=== PATIENT | female | born 1985 | race Asian ===

== ENCOUNTER 2017-08-17 16:16 | Outpatient (CLI) | END 2017-08-17 17:55 | disposition home or self-care (01) ==

== ENCOUNTER 2017-08-26 10:59 | Inpatient (IN) | END 2017-08-28 13:53 | disposition home or self-care (01) | DRG 775 ==

== ENCOUNTER 2018-12-27 00:34 | Outpatient (CLI) | payer OTHER ==
[~2018-12-27] VITALS: Ht 167.6 cm; Wt 77.3 kg
[~2018-12-27 00:34] MED LIST: PREN1TAB79 PO
[2018-12-27 00:47] VITALS: BP 110/65; PULSE 82; RESP 18
[2018-12-27 00:48] VITALS: Ht 167.6 cm; Wt 77.3 kg
[2018-12-27] MEDS ORDERED: GUAIFENESIN/DM 5ML CUP PO ONE (01:00)
--- NOTE | 2018-12-27 03:32 | PN ---
Triage Information Date/Time Reason for visit: cough Weeks of Gestation 26 weeks /Para Diabetes: none Hypertention: none Objective Vital Signs Date Temp Pulse Resp B/P (MAP) Pulse Ox O2 O2 Flow FiO2 Time Delivery Rate 12/27/18 99.1 82 18 110/65 97 Room Air 00:47 (80) Heart Rate: 140's Heart Rate Comments Appropriate for GA Results/Medications Result Diagram: 12/27/18 0152 Results 24 hrs Laboratory Tests Test 12/27/18 01:01 12/27/18 01:52 Urine Color YELLOW Urine Clarity SLIGHTLY CLOUDY A Urine pH 6.0 Urine Specific [place] 1.019 Urine Ketones NEGATIVE Urine Nitrite NEGATIVE Urine Bilirubin NEGATIVE Urine Urobilinogen NEGATIVE Urine Leukocyte Esterase TRACE A Urine Microscopic RBC 1 Urine Microscopic WBC 3 Urine Squamous Epithelial Cells FEW Urine Hemoglobin NEGATIVE Urine Glucose NEGATIVE Urine Total Protein NEGATIVE White Blood Count 8.1 # Red Blood Count 3.30 L Hemoglobin 10.7 L Hematocrit 31.5 L Mean Corpuscular Volume 95.5 Mean Corpuscular Hemoglobin 32.4 Mean Corpuscular Hemoglobin Concent 34.0 Red Cell Distribution Width 12.9 Platelet Count 189 Mean Platelet Volume 9.7 Immature Granulocytes % 0.600 H Neutrophils % 63.7 Lymphocytes % 26.3 Monocytes % 6.1 Eosinophils % 3.1 Basophils % 0.2 Nucleated Red Blood Cells % 0.0 Immature Granulocytes # 0.050 H Neutrophils # 5.1 Lymphocytes # 2.1 Monocytes # 0.5 Eosinophils # 0.3 Basophils # 0.0 Nucleated Red Blood Cells # 0.0 Imaging Results [facility] 03/17 Disposition: Discharge Assessment/Plan Azithromycin Z Mendoza Follow up with BAYRON Bragg MD December 27, 2018 03:32
--- NOTE | 2018-12-27 09:14 | TRIAGE ---
OB Triage Datetime Report Generated by CPN: 12/27/2018 09:13 Datetime: 12/27/2018 03:26 Stage of : OB Triage Temperature Route: Oral Labor Evaluation Frequency: None noted or palpated Monitor Mode: External Resting Tone [place]: Relaxed Heart Rate FHR Baseline Rate: 135 Monitor Mode: External US FHR Baseline Changes: No Baseline Change Variability: Moderate 6-25 bpm Accelerations: 15X15 Decelerations: None Datetime: 12/27/2018 02:59 Stage of : OB Triage Labor Evaluation Frequency: NONE Monitor Mode: External Heart Rate FHR Baseline Rate: 135 Monitor Mode: External US Variability: Moderate 6-25 bpm Accelerations: 15X15 Decelerations: None Category: Category I Datetime: 12/27/2018 02:43 Contraction Comments: Patient coughed Datetime: 12/27/2018 02:01 Stage of : OB Triage Labor Evaluation Frequency: NONE Monitor Mode: External Heart Rate FHR Baseline Rate: 135 Monitor Mode: External US Variability: Moderate 6-25 bpm Accelerations: 15X15 Decelerations: None Category: Category I Datetime: 12/27/2018 01:17 Stage of : OB Triage Datetime: 12/27/2018 00:59 Stage of : OB Triage Labor Evaluation Frequency: None Monitor Mode: External Pattern: Normal: <= 5 Contractions in 10 Minutes Resting Tone [place]: Relaxed Heart Rate FHR Baseline Rate: 140 Monitor Mode: External US Variability: Moderate 6-25 bpm Accelerations: 15X15 Decelerations: None Category: Category I Datetime: 12/27/2018 00:52 Stage of : OB Triage Assessment Type: Triage Maternal Assessment Level of Consciousness: Fully Conscious DTR's/Clonus: DTRs 2+; No Clonus Headache: Denies Blurred Vision: No Respiratory Effort: Unlabored; Regular Rhythm; Equal Expansion Breath Sounds, Left: Clear and Equal Breath Sounds, Right: Clear and Equal Nausea/Vomiting: Denies RUQ Epigastric Pain: Denies Lower Extremities Edema: None Degree: None Upper Extremities Edema: None Degree: None Facial Edema: None Temperature Route: Oral Fall Risk Assessment History of Falling: (0) No Secondary Diagnosis: (0) No Ambulatory Aid: (0) Bedrest/Nurse Assist IV Therapy: (0) No Gait: (0) Normal/Bedrest/Immobile Mental Status: (0) Oriented to Own Ability Fall Score: 0 Fall Risk Score Definition: No Risk: No action required Monitor Mode: External Monitor Mode: External US Pain Assessment Pain Scale: 6 Pain Presence: Intermittent Pain Type: Ache Pain Location: Abdomen; Back; Right Flank Pain Relief Measures: Comfort Measures Datetime: 12/27/2018 00:50 Time of Arrival: 12/27/2018 00:23 EGA: 26.6 Arrived By: Wheelchair Arrived From: Emergency Dept Chief Complaint: Decreased movt. Cough x7days - getting worse Movement: Decreased Contractions: Denies/Absent Rupture of Membranes: Denies Vaginal Discharge: Denies Recent Sexual Intercouse: Denies Abdominal Trauma: Not Applicable Patient Complaints: Fever; Cough Additional Patient Complaints: Ear/throat ache Fever yesterday Time Provider Notified: 12/27/2018 00:37 Provider Notified: Initial Plan: EFM, VS
== END 2018-12-27 03:40 | disposition home or self-care (01) ==
LOC: L-D 00:34 → OBT 00:34
PROVIDERS: ATTEND Obstetrics & Gynecology
DX: O99.512 Diseases of the respiratory system complicating pregnancy, second trimester (principal); R05 Cough; O09.522 Supervision of elderly multigravida, second trimester; Z3A.26 26 weeks gestation of pregnancy
CPT/HCPCS: 76815; 76818; 81001; 85025; Z7500; Z7610; G0463

== ENCOUNTER 2019-03-20 01:29 | Inpatient (IN) | payer OTHER ==
[~2019-03-20] VITALS: Ht 167.6 cm; Wt 76.9 kg
[2019-03-20 01:44] VITALS: Ht 167.6 cm; Wt 76.9 kg
[2019-03-20 01:45] VITALS: BP 119/76; PULSE 81; RESP 17
[2019-03-20] MEDS ORDERED: ACETAMINOPHEN 325 MG TAB PO ONE (04:00)
--- NOTE | 2019-03-20 04:08 | HP ---
Date/Time of Note Date/Time of Note DATE: 03/20/19 TIME: 04:06 OB - History Hx of Present Chief Complaint: contractionts, bloody discharge Estimated Due Date: Mar 29, 2019 : 6 Para: 4 Care: Good Care Obstetrical Complications: None Medical Complications: None Past Family/Social History * Past Medical, Surgical, Family and Obstetric Histories reviewed from chart. OB Admission Exam Vital Signs Vital Signs Vital Signs Date Temp Pulse Resp B/P (MAP) Pulse Ox O2 O2 Flow FiO2 Time Delivery Rate 03/20/19 98.2 81 17 119/76 Room Air 01:45 (90) Physical Exam HEENT: WNL Heart: Rhythm Normal Abdomen: WNL Extremities: Normal Cervical Dilatation: 3cm Effacement: 75% Station: -2 Membranes: Intact Contractions on Admission: 6-10 Minutes Apart Intensity: Moderate OB Assessment/Plan Reason for admission: other (early labor, IUP 38 weeks, EFW 3200 gr) Other plan: Admit to L@D, patient requesting epidural, expected management JOSÉ MIGUEL FALL MD Mar 20, 2019 04:08
[2019-03-20] MEDS ORDERED: OXYTOCIN 30 UNITS/LR 500 ML IV PRN ×2 (04:30→11:30)
[2019-03-20] MEDS ORDERED: CARBOPROST 250 MCG INJ IM PRN ×2 (04:30→11:30)
[2019-03-20] MEDS ORDERED: LIDOCAINE 1% (MPF) 30 ML INJ INJ PRN (04:30)
[2019-03-20] MEDS ORDERED: OXYTOCIN 30 UNITS/LR 500 ML IV SCH ×3 (04:30→11:07)
[2019-03-20] MEDS ORDERED: METHYLERGONOVINE 0.2 MG INJ IM PRN ×2 (04:30→11:30)
[2019-03-20] MEDS ORDERED: MISOPROSTOL 200 MCG TAB PR PRN ×2 (04:30→11:30)
[2019-03-20] MEDS ORDERED: IBUPROFEN 600 MG TAB PO PRN (04:30)
[2019-03-20] MEDS ORDERED: BUTORPHANOL 2 MG INJ IV PRN ×2 (04:30)
[2019-03-20] MEDS: LACTATED RINGER'S 1,000 ML IV SCH ×2 (04:40→05:45)
--- NOTE | 2019-03-20 04:56 | PREAC ---
Date/Time of Note Date/Time of Note DATE: 03/20/19 TIME: 04:55 Anesthesia Eval and Record Evaluation Time Pre-Procedure Interview DATE: 03/20/19 TIME: 04:55 Age 34 Sex female NPO: 8 hrs Preoperative diagnosis labor pain Planned procedure epidural Past Medical History Past Medical History: Includes Surgery & Anesthesia Issues No known issue Meds Anticoagulation: No Beta Torrey within 24 hr: No Reason Beta Torrey not given: Pt. not on B-Torrey Reported Medications Vit W-Ca,Fe,FA(<1 mg) ( Vitamins) 1 Each Tablet, 1 EACH PO, TAB 01/07/16 Current Medications Lactated Ringer's 1,000 ml @ 125 mls/hr Q8H IV Last administered on 03/20/19at 04:40; Admin Dose 125 MLS/HR; Start 03/20/19 at 04:01 Butorphanol Tartrate (Stadol) 1 mg Q2H PRN IV .PAIN SCALE 1-5; Start 03/20/19 at 04:30 Butorphanol Tartrate (Stadol) 2 mg Q2H PRN IV .PAIN SCALE 6-10; Start 03/20/19 at 04:30 Lidocaine (Xylocaine 1% (Mpf)) 30 ml ONCE PRN INJ .EPISIOTOMY; Start 03/20/19 at 04:30 Oxytocin/Lactated Ringer's 500 ml @ 500 mls/hr ONCE POST IV ; Start 03/20/19 at 04:30 Oxytocin/Lactated Ringer's 500 ml @ 125 mls/hr POST IV ; Start 03/20/19 at 04:30 Ibuprofen (Motrin) 600 mg ONCE PRN PO .PAIN 1-5; Start 03/20/19 at 04:30 Oxytocin/Lactated Ringer's 500 ml @ 0 mls/hr ONCE PRN IV .VAGINAL BLEEDING; Start 03/20/19 at 04:30 Methylergonovine Maleate (Methergine) 0.2 mg ONCE PRN IM .VAGINAL BLEEDING; Start 03/20/19 at 04:30 Carboprost Tromethamine (Hemabate) 250 mcg ONCE PRN IM .VAGINAL BLEEDING; Start 03/20/19 at 04:30 Misoprostol (Cytotec) 1,000 mcg ONCE PRN RI .VAGINAL BLEEDING; Start 03/20/19 at 04:30 Meds reviewed: Yes Allergies Coded Allergies: No Known Allergy (Unverified , 03/20/19) Allergies Reviewed: Yes Labs/Studies Labs Reviewed: Reviewed by anesthesiologist test: Positive Studies: ECG (n/a), CXR (n/a) Pre-procedure Exam Last vitals Vital Signs Date Temp Pulse Resp B/P (MAP) Pulse Ox O2 O2 Flow FiO2 Time Delivery Rate 03/20/19 98.2 81 17 119/76 Room Air 01:45 (90) Airway: Adequate mouth opening Mallampati: Mallampati I Teeth: Normal Lung: Normal Heart: Normal ASA Physical Status ASA physical status: 2 Emergency: None Planned Anesthetic Neuraxial: Epidural Pre-operative Attestations Prior to commencing anesthesia and surgery, the patient was re-evaluated, there was verification of: *The patient's identity *The results of appropriate recent lab work and preoperative vital signs *The above evaluation not changing prior to induction *Anesthetic plan, risk benefits, alternative and complications discussed with patient/family; questions answered; patient/family understands, accepts and wis hes to proceed. DAVID REDDY MD Mar 20, 2019 04:56
[2019-03-20] MEDS ORDERED: FENTAnyl 2MCG/ML-ROPIV 0.2% 100 ML ONE (05:10)
--- NOTE | 2019-03-20 05:21 | PAC ---
Date/Time of Note Date/Time of Note DATE: 03/20/19 TIME: 05:20 Post-Anesthesia Notes Post-Anesthesia Note Last documented vital signs Vital Signs Date Temp Pulse Resp B/P (MAP) Pulse Ox O2 O2 Flow FiO2 Time Delivery Rate 03/20/19 98.2 87 17 101/58 100 Room Air 01:45 Activity: WNL Respiratory function: WNL Cardiovascular function: WNL Mental status: Baseline Pain reasonably controlled: Yes Hydration appropriate: Yes Nausea/Vomiting absent: No DAVID REDDY MD Mar 20, 2019 05:21
[2019-03-20] MEDS ORDERED: NALOXONE (0.4 MG/ML) INJ IV PRN (05:30)
[2019-03-20] MEDS ORDERED: ONDANSETRON 4 MG INJ IV PRN (05:30)
[2019-03-20] MEDS ORDERED: DIPHENHYDRAMINE 50 MG INJ IV PRN (05:30)
[2019-03-20] MEDS ORDERED: FENTAnyl 2MCG/ML-ROPIV 0.2% 100 ML BAG EPI SCH (05:30)
--- NOTE | 2019-03-20 06:27 | TRIAGE ---
OB Triage Datetime Report Generated by CPN: 03/20/2019 06:27 Datetime: 03/20/2019 06:13 Labor Evaluation Frequency: 2-3 Monitor Mode: External Duration (sec)2399: 40-90 Quality: Moderate Pattern: Normal: <= 5 Contractions in 10 Minutes Resting Tone [place]: Relaxed Heart Rate FHR Baseline Rate: 120 Monitor Mode: External US FHR Baseline Changes: No Baseline Change Variability: Moderate 6-25 bpm Accelerations: 15X15 Decelerations: None Category: Category I Pain Presence: None/Denies Datetime: 03/20/2019 05:45 Maternal Assessment Level of Consciousness: Keenly Alert, Responsive Labor Evaluation Frequency: 2-3 Monitor Mode: External Duration (sec)2399: 40-100 Quality: Moderate Pattern: Normal: <= 5 Contractions in 10 Minutes Resting Tone [place]: Relaxed Heart Rate FHR Baseline Rate: 120 Monitor Mode: External US FHR Baseline Changes: No Baseline Change Variability: Moderate 6-25 bpm Accelerations: 15X15 Decelerations: None Category: Category I Pain Presence: None/Denies Datetime: 03/20/2019 05:34 Vaginal Exam Dilatation (cms): 4.0 Effacement (%): 60 Station: -2 Exam By: mv Datetime: 03/20/2019 05:20 Pain Assessment Pain Scale: 0 Datetime: 03/20/2019 05:13 Maternal Assessment Level of Consciousness: Keenly Alert, Responsive Datetime: 03/20/2019 05:06 Maternal Assessment Level of Consciousness: Keenly Alert, Responsive Datetime: 03/20/2019 05:05 Maternal Assessment Level of Consciousness: Keenly Alert, Responsive Datetime: 03/20/2019 04:59 Maternal Assessment Level of Consciousness: Keenly Alert, Responsive Datetime: 03/20/2019 04:57 Maternal Assessment Level of Consciousness: Keenly Alert, Responsive Pain Assessment Pain Scale: 8 Datetime: 03/20/2019 04:44 Contraction Comments: unable to detect, pt moving. Heart Rate FHR Baseline Rate: 135 Monitor Mode: External US Variability: Moderate 6-25 bpm Accelerations: 15X15 Decelerations: None Category: Category I Datetime: 03/20/2019 04:15 Stage of : Labor Assessment Type: Admission Assessment Vaginal Bleeding: None Maternal Assessment Level of Consciousness: Keenly Alert, Responsive DTR's/Clonus: DTRs 2+; No Clonus Headache: Denies Blurred Vision: No Respiratory Effort: Unlabored; Regular Rhythm; Equal Expansion Breath Sounds, Left: Clear and Equal Breath Sounds, Right: Clear and Equal Nausea/Vomiting: Denies RUQ Epigastric Pain: Denies Lower Extremities Edema: None Degree: None Upper Extremities Edema: None Degree: None Facial Edema: None Fall Risk Assessment History of Falling: (0) No Secondary Diagnosis: (0) No Ambulatory Aid: (0) Bedrest/Nurse Assist IV Therapy: (20) Yes Gait: (0) Normal/Bedrest/Immobile Mental Status: (0) Oriented to Own Ability Fall Score: 20 Fall Risk Score Definition: No Risk: No action required Pain Assessment Pain Scale: 8 Pain Presence: Intermittent Pain Type: Burning; Cramping; Pressure; Ache Pain Location: Abdomen; Back Datetime: 03/20/2019 04:00 Stage of : OB Triage Labor Evaluation Frequency: OCCA Monitor Mode: External Duration (sec)2399: 120 Quality: Mild Pattern: Normal: <= 5 Contractions in 10 Minutes Resting Tone [place]: Relaxed Heart Rate FHR Baseline Rate: 125 Monitor Mode: External US Variability: Moderate 6-25 bpm Accelerations: 15X15 Decelerations: None Category: Category I Vaginal Exam Dilatation (cms): 3.0 Effacement (%): 50 Station: -3 Exam By: DR. FALL Membrane Status: Bulging Vaginal Bleeding: Normal Show Cervix, Position: Posterior Presentation 'A': Cephalic Datetime: 03/20/2019 03:30 Vaginal Exam Dilatation (cms): 3.0 Effacement (%): 50 Station: -3 Exam By: Renetta PEREZDAVID Vaginal Bleeding: Normal Show Cervix, Position: Posterior Datetime: 03/20/2019 03:06 Monitor Mode: External Contraction Comments: APPLIED Monitor Mode: External US Comments: APPLIED Datetime: 03/20/2019 02:11 Labor Evaluation Frequency: X1 Monitor Mode: External Duration (sec)2399: 80 Pattern: Normal: <= 5 Contractions in 10 Minutes Resting Tone [place]: Relaxed Heart Rate FHR Baseline Rate: 135 Monitor Mode: External US Variability: Moderate 6-25 bpm Accelerations: 15X15 Decelerations: None Category: Category I Datetime: 03/20/2019 02:00 Vaginal Exam Dilatation (cms): 3.0 Effacement (%): 50 Station: -3 Exam By: Renetta HERNANDEZ Membrane Status: Intact Vaginal Bleeding: Scant Cervix, Consistency: Firm Cervix, Position: Posterior Datetime: 03/20/2019 01:47 Time of Arrival: 03/20/2019 01:24 EGA: 38.5 Arrived By: Wheelchair Arrived From: Home Chief Complaint: CONTRACTIONS SINCE 1999 BLEEDING Movement: Present Contractions: Irregular Time Contractions Began: 03/19/2019 20:00 Rupture of Membranes: Denies Vaginal Discharge: Present Recent Sexual Intercouse: Denies Abdominal Trauma: Not Applicable Patient Complaints: Contractions Time Provider Notified: 03/20/2019 02:05 Provider Notified: DR. REYES Initial Plan: EFM, SVE, CALL OB Datetime: 03/20/2019 01:37 Stage of : OB Triage Maternal Assessment Level of Consciousness: Keenly Alert, Responsive DTR's/Clonus: DTRs 2+; No Clonus Headache: Denies Blurred Vision: No Respiratory Effort: Unlabored; Regular Rhythm; Equal Expansion Breath Sounds, Left: Clear and Equal Breath Sounds, Right: Clear and Equal Nausea/Vomiting: Denies RUQ Epigastric Pain: Denies Lower Extremities Edema: None Degree: None Upper Extremities Edema: None Degree: None Facial Edema: None Temperature Route: Oral Fall Risk Assessment History of Falling: (0) No Secondary Diagnosis: (0) No Ambulatory Aid: (0) Bedrest/Nurse Assist IV Therapy: (0) No Gait: (0) Normal/Bedrest/Immobile Mental Status: (0) Oriented to Own Ability Fall Score: 0 Fall Risk Score Definition: No Risk: No action required Pain Assessment Pain Scale: 6 Pain Presence: Intermittent Pain Type: Contraction Pain Location: Abdomen Datetime: 03/20/2019 01:35 Monitor Mode: External Contraction Comments: APPLIED Monitor Mode: External US Comments: APPLIED Datetime: 12/27/2018 01:00 Stage of : OB Triage Datetime: 12/27/2018 00:52 Fall Score: 0 Fall Risk Score Definition: No Risk: No action required Datetime: 12/27/2018 00:50 EGA: 26.6 Datetime: 12/27/2018 00:42 Stage of : OB Triage Datetime: 12/27/2018 00:37 Stage of : OB Triage
--- NOTE | 2019-03-20 08:45 | LDN ---
Date/Time of Note Date/Time of Note DATE: 03/20/19 TIME: 08:44 Delivery Summary Placenta Delivered: Spontaneously Meconium: none Episiotomy: No Estimated blood loss: 300 Sponge & Needle done & correct: Yes All needle counts correct: Yes Any foreign bodies felt in the: No APOLONIA ERYES MD Mar 20, 2019 08:44
--- NOTE | 2019-03-20 08:45 | DS ---
Date/Time of Note Date/Time of Note DATE: 03/20/19 TIME: 08:45 Discharge Summary Admission/Discharge Info Admit Date/Time Mar 20, 2019 at 04:00 Discharge Date/Time Patient Condition: Good Hospital Course unremarkable Home Meds Reported Medications Vit W-Ca,Fe,FA(<1 mg) ( Vitamins) 1 Each Tablet, 1 EACH PO, TAB 01/07/16 Primary Care Provider Not On Staff Doctor Pending Labs Laboratory Tests Test 03/20/19 04:40 White Blood Count 10.1 10^3/ul (4.8-10.8) Red Blood Count 3.76 10^6/ul (4.20-5.40) Hemoglobin 12.0 g/dl (12.0-16.0) Hematocrit 36.2 % (37.0-47.0) Mean Corpuscular Volume 96.3 fl (82.0-101.0) Mean Corpuscular Hemoglobin 31.9 pg (29.0-33.0) Mean Corpuscular Hemoglobin Concent 33.1 g/dl (32.0-37.0) Red Cell Distribution Width 13.3 % (11.5-14.5) Platelet Count 168 10^3/UL (140-415) Mean Platelet Volume 9.6 fl (7.4-10.4) Immature Granulocytes % 0.600 % (0.001-0.429) Neutrophils % 69.0 % (39.0-77.0) Lymphocytes % 23.3 % (15.0-51.0) Monocytes % 6.0 % (0.0-11.0) Eosinophils % 0.8 % (0.0-7.0) Basophils % 0.3 % (0.0-2.0) Nucleated Red Blood Cells % 0.0 /100WBC (0.0-0.0) Immature Granulocytes # 0.060 10^3/ul (0.0-0.031) Neutrophils # 7.0 10^3/ul (1.6-7.5) Lymphocytes # 2.3 10^3/ul (0.8-2.9) Monocytes # 0.6 10^3/ul (0.3-0.9) Eosinophils # 0.1 10^3/ul (0.0-0.5) Basophils # 0.0 10^3/ul (0.0-0.1) Nucleated Red Blood Cells # 0.0 10^3/ul (0.0-0.0) Prothrombin Time 13.2 Sec (11.9-14.9) Prothrombin Time Ratio 1.0 INR International Normalized Ratio 0.99 Activated Partial Thromboplast Time 27.8 Sec (23.0-35.0) Hepatitis B Surface Antigen NEGATIVE (NEGATIVE) APOLONIA REYES MD Mar 20, 2019 08:45
[2019-03-20 10:50] VITALS: BP 109/67; PULSE 80; RESP 17
[2019-03-20] MEDS: LACTATED RINGER'S 1,000 ML IV* SCH ×2 (11:07→18:06)
[2019-03-20] MEDS ORDERED: MAGNESIUM HYDROXIDE 30ML CUP PO PRN (11:30)
[2019-03-20] MEDS ORDERED: BENZOCAINE 20% 56 ML SPRAY TOP PRN (11:30)
[2019-03-20] MEDS ORDERED: ZOLPIDEM 5 MG TAB PO PRN (11:30)
[2019-03-20] MEDS ORDERED: LANOLIN HPA 1 PKT TOP PRN (11:30)
[2019-03-20] MEDS ORDERED: ACETAMINOPHEN 325 MG TAB PO PRN (11:30)
[2019-03-20] MEDS ORDERED: WITCH HAZEL/GLYCERIN PAD PR PRN (11:30)
[2019-03-20] MEDS ORDERED: DIPHENHYDRAMINE 25 MG CAP PO PRN (11:30)
[2019-03-20] MEDS ORDERED: HYDROCODONE/APAP (5/325) TAB PO PRN (11:30)
[2019-03-20] MEDS ORDERED: ONDANSETRON 4 MG INJ IV STA (11:53)
[2019-03-20] MEDS: IBUPROFEN 800 MG TAB PO SCH ×3 (13:54→23:41)
[2019-03-20 16:00] VITALS: BP 98/54; PULSE 80; RESP 16
[2019-03-20 20:35] VITALS: BP 101/52; PULSE 84; RESP 18
[2019-03-21 00:30] VITALS: BP 106/62; PULSE 80; RESP 18
[2019-03-21] MEDS: LACTATED RINGER'S 1,000 ML IV* SCH ×2 (03:07→11:07)
[2019-03-21 04:30] VITALS: BP 120/60; PULSE 68; RESP 18
[2019-03-21] MEDS: IBUPROFEN 800 MG TAB PO SCH ×3 (05:50→17:58)
[2019-03-21 08:00] VITALS: BP 89/54; PULSE 72; RESP 18
[2019-03-21] MEDS: SENNA/DOCUSATE NA (8.6MG/50MG) TAB PO PRN ×2 (08:47→20:45)
[2019-03-21 15:56] VITALS: BP 101/76; PULSE 70; RESP 18
--- NOTE | 2019-03-21 17:38 | QN ---
Documentation Comment doing well vss d/c home tomorrow APOLONIA REYES MD Mar 21, 2019 17:38
[2019-03-21 20:00] VITALS: BP 101/55; PULSE 75; RESP 16
[2019-03-22] MEDS: IBUPROFEN 800 MG TAB PO SCH ×3 (00:36→11:57)
[2019-03-22 04:00] VITALS: BP 101/55; PULSE 75; RESP 20
[2019-03-22 07:50] VITALS: BP 115/64; PULSE 68; RESP 18
[2019-03-22] MEDS ORDERED: DIPHTH/TET/ACEL PERTUSS (ADULT) 0.5 ML VIAL IM* ONE (09:00)
[2019-03-22] MEDS ORDERED: MEASLES,MUMPS,RUBELLA VACCINE INJ SC* ONE (09:00)
[2019-03-22] MEDS ORDERED: VARICELLA VACCINE LIVE/PF 1,350 UNIT/0.5 ML ML SC* ONE (09:00)
--- NOTE | 2019-03-23 12:11 | DELSUM ---
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 Babies in Womb: 1 Attempted: No Labor Anesthesia: Epidural LABOR INFORMATION Reason for Induction: Not Applicable Onset of Labor: 03/20/2019 02:00 Complete Dilatation: 03/20/2019 08:29 Group B Beta Strep: Negative Antibiotics # of Doses: none Steroids Given: None Reason Steroids Not Administered: Not Applicable MEMBRANES Membranes Rupture Method: Artificial Rupture of Membranes: 03/20/2019 08:30 Length of Rupture (hr): 0.13 Amniotic Fluid Color: Clear Amniotic Fluid Amount: Moderate Amniotic Fluid Odor: None STAGES OF LABOR Stage 1 hr: 6 Stage 1 min: 29 Stage 2 hr: 0 Stage 2 min: 9 Stage 3 hr: 0 Stage 3 min: 2 Total Time in Labor hr: 6 Total Time in Labor min: 40 VAGINAL DELIVERY Episiotomy: None Laceration Extension: N/A Laceration Type: None Laceration Repair: No Initial Vag Sponge Count: 10 Final Vag Sponge Count: 10 Initial Vag Sharps Count: 1 Final Vag Sharps Count: 1 Sponge Count Correct: Yes Sharps Count Correct: Yes BABY A INFORMATION Infant Delivery Date/Time: 03/20/2019 08:38 Method of Delivery: Vaginal Born in Route : No : N/A Forceps: N/A Vacuum Extraction: N/A Shoulder Dystocia : No SHOULDER DYSTOCIA BABY A Delivery Date/Time: 03/20/2019 08:38 PRESENTATION/POSITION BABY A Presentation: Cephalic Cephalic Presentation: Vertex Vertex Position: Left Occipital Anterior Breech Presentation: N/A PLACENTA INFORMATION BABY A Placenta Delivery Time : 03/20/2019 08:40 Placenta Method of Delivery: Spontaneous Placenta Status: Delivered SCORES BABY A Heart Rate 1 min: >100 bpm Resp Effort 1 min: Good Cry Reflex Irritability 1 min: Cough/Sneeze/Pulls Away Muscle Tone 1 min: Active Motion Color 1 min: Blue/Pale Resuscitation Effort 1 min: Tactile Stimulation SCORE 1 MIN: 8 Heart Rate 5 min: >100 bpm Resp Effort 5 min: Good Cry Reflex Irritability 5 min: Cough/Sneeze/Pulls Away Muscle Tone 5 min: Active Motion Color 5 min: Body [place], Extremit Blue Resuscitation Effort 5 min: Tactile Stimulation SCORE 5 MIN: 9 INFANT INFORMATION BABY A Gestational Age at Delivery: 38.5 Gestational Status: Early Term- 37- 38.6 Weeks Infant Outcome : Liveborn, with signs of life Condition : Stable Infant Sex: Female IDENTIFICATION/MEDS BABY A ID Band Number: [id number] ID Band Location: Right Leg; Left Arm Sensor Applied: Yes Sensor Number: [id number] Sensor Location : Cord Clamp Vitamin K Given : Not Given Erythromycin Given: Not Given WEIGHT/LENGTH BABY A Infant Birthweight (gm): 2835 Weight (lb): 6 Infant Weight (oz): 4 Infant Length (in): 19.50 Length (cm): 49.53 CORD INFORMATION BABY A No. Cord Vessels: 3 Nuchal Cord : Around Neck x1, Loose Cord Blood Taken: Yes Suction: Mouth; Nose ASSESSMENT BABY A Infant Complications: None Physical Findings at Delivery: Within Normal Limits Infant Respirations: Appears Normal Laundry Laborer/ALS Called : No Infant Care By: Gerson almanza Transferred To: Remains with Mother
== END 2019-03-22 12:05 | disposition home or self-care (01) | DRG 807 ==
LOC: OBT 01:29 → L-D 01:30 → OBT 04:00 → PP1 10:56
PROVIDERS: ADMIT Obstetrics & Gynecology; ATTEND Obstetrics & Gynecology
PROC: 10E0XZZ Delivery of Products of Conception, External Approach (ICD-10-PCS; principal; 2019-03-20)
DX: O80 Encounter for full-term uncomplicated delivery (principal); Z37.0 Single live birth; Z3A.38 38 weeks gestation of pregnancy
CPT/HCPCS: 62322; 76818; 85025; 85610; 85730; 86592; 86850; 86900; 86901; 87340; 90715; 90716; G0463; J2405; J2590; J3010; J7120